=== PATIENT | male | born 1995 | race Caucasian/White ===

== ENCOUNTER 2018-06-02 15:25 | Emergency (ER) | payer SELFPAY ==
[2018-06-02 15:39] VITALS: BP 113/80; PULSE 85; RESP 18; TEMP 98.4
--- NOTE | 2018-06-02 15:48 | ED ---
ENT HPI - General Chief complaint: ENT Stated complaint: Sore Thoat Time Seen by Provider: 06/02/18 15:41 Source: patient, RN notes reviewed Mode of arrival: ambulatory Limitations: no limitations - History of Present Illness Initial comments: 22-year-old male presents emergency Department chief complaint sore throat. Patient states it started said last night worse today. He did try some over-the -counter medications and salt water gargles no relief. Patient states his uvula swollen. Patient denies any known fever or chills. Denies any sinus congestion, cough or chest congestion. Patient states that he's had known drug ALLERGIES no other ALLERGIES noted. - Related Data Previous Rx's Medication Instructions Recorded Amoxicillin 500 mg PO Q8H #30 capsule 06/02/18 predniSONE 50 mg PO DAILY #5 tab 06/02/18 Allergies Allergy/AdvReac Type Severity Reaction Status Date / Time No Known Allergies Allergy Verified 06/02/18 15:39 Review of Systems ROS Statement: Those systems with pertinent positive or pertinent negative responses have been documented in the HPI. ROS Other: All systems not noted in ROS Statement are negative. Past Medical History Past Medical History: No Reported History History of Any Multi-Drug Resistant Organisms: None Reported Past Surgical History: No Surgical Hx Reported Past Psychological History: No Psychological Hx Reported Smoking Status: Never smoker Past Alcohol Use History: Occasional Past Drug Use History: None Reported General Exam Limitations: no limitations General appearance: alert, in no apparent distress Head exam: Present: atraumatic, normocephalic, normal inspection Eye exam: Present: normal appearance, PERRL, EOMI. Absent: scleral icterus, conjunctival injection, periorbital swelling ENT exam: Present: mucous membranes moist, TM's normal bilaterally, normal external ear exam. Absent: normal oropharynx (Uvula is erythematous, swollen patient is swallowing secretions well) Neck exam: Present: normal inspection, full ROM. Absent: tenderness, meningismus, lymphadenopathy Respiratory exam: Present: normal lung sounds bilaterally. Absent: respiratory distress, wheezes, rales, rhonchi, stridor Cardiovascular Exam: Present: regular rate, normal rhythm, normal heart sounds. Absent: systolic murmur, diastolic murmur, rubs, gallop, clicks Course Vital Signs 06/02/18 15:36 Temperature 98.4 F Pulse Rate 85 Respiratory 18 Rate Blood Pressure 113/80 O2 Sat by Pulse 97 Oximetry Medical Decision Making - Medical Decision Making 22-year-old male present emergency from for sore throat. Patient has uvulitis. Patient be started on prednisone, amoxicillin. We did discuss take over-the- counter antihistamines. Return parameters were discussed. Disposition Clinical Impression: Uvulitis Disposition: HOME SELF-CARE Condition: Stable Instructions: Uvulitis (ED) Additional Instructions: Please return to the Emergency Department if symptoms worsen or any other concerns. Prescriptions: Amoxicillin 500 mg PO Q8H #30 capsule predniSONE 50 mg PO DAILY #5 tab Is patient prescribed a controlled substance at d/c from ED?: No Referrals: None,Stated [Primary Care Provider] - 1-2 days Time of Disposition: 15:48
== END 2018-06-02 16:05 | disposition home or self-care (01) ==
LOC: EC 15:25
DX: K12.2 Cellulitis and abscess of mouth (principal)
CPT/HCPCS: 99282

== ENCOUNTER 2021-10-27 19:11 | Emergency (ER) | payer OTHER ==
[2021-10-27 21:15] VITALS: BP 126/70; PULSE 95; RESP 18; TEMP 98.4
--- NOTE | 2021-10-27 22:46 | ED ---
URI HPI - General Chief Complaint: Upper Respiratory Infection Stated Complaint: Dizziness,Nausea Time Seen by Provider: 10/27/21 22:37 Source: patient Mode of arrival: ambulatory Limitations: no limitations - History of Present Illness MD Complaint: fever, cough, nasal congestion Onset/Timin -: days(s) Consistency: constant Improves With: nothing Worsens With: nothing Context: sick contacts Associated Symptoms: fever, chills, myalgias, headache, nasal congestion, cough - Related Data Previous Rx's Medication Instructions Recorded Amoxicillin 500 mg PO Q8H #30 capsule 06/02/18 predniSONE 50 mg PO DAILY #5 tab 06/02/18 Allergies Allergy/AdvReac Type Severity Reaction Status Date / Time strawberry Allergy Rash/Hives Verified 10/27/21 21:15 Review of Systems ROS Statement: Those systems with pertinent positive or pertinent negative responses have been documented in the HPI. ROS Other: All systems not noted in ROS Statement are negative. Constitutional: Reports: fever, chills ENT: Reports: congestion Respiratory: Reports: cough. Denies: dyspnea Cardiovascular: Denies: chest pain, palpitations Gastrointestinal: Denies: abdominal pain, nausea, vomiting Genitourinary: Denies: dysuria Musculoskeletal: Reports: myalgia Skin: Denies: rash Neurological: Reports: headache. Denies: weakness Past Medical History Past Medical History: Asthma History of Any Multi-Drug Resistant Organisms: None Reported Past Surgical History: No Surgical Hx Reported Past Psychological History: ADD/ADHD, Anxiety Smoking Status: Never smoker Past Alcohol Use History: Occasional Past Drug Use History: Marijuana General Exam Limitations: no limitations General appearance: alert, in no apparent distress Head exam: Present: atraumatic, normocephalic Eye exam: Present: normal appearance. Absent: scleral icterus, conjunctival injection Neck exam: Present: normal inspection Respiratory exam: Present: normal lung sounds bilaterally. Absent: respiratory distress, wheezes, rales, rhonchi, stridor Cardiovascular Exam: Present: regular rate, normal rhythm, normal heart sounds. Absent: systolic murmur, diastolic murmur, rubs, gallop GI/Abdominal exam: Present: soft. Absent: distended, tenderness, guarding, rebound, rigid, mass Extremities exam: Present: normal inspection, normal capillary refill. Absent: pedal edema, calf tenderness Back exam: Present: normal inspection. Absent: CVA tenderness (R), CVA tenderness (L) Neurological exam: Present: alert Skin exam: Present: warm, dry, intact, normal color. Absent: rash Course Vital Signs 10/27/21 21:12 Temperature 98.4 F Pulse Rate 95 Respiratory 18 Rate Blood Pressure 126/70 O2 Sat by Pulse 99 Oximetry Medical Decision Making - Lab Data Lab Results 10/27/21 Range/Units 21:23 Influenza Type A (PCR) Not Detected (Not Detectd) Influenza Type B (PCR) Not Detected (Not Detectd) RSV (PCR) Not Detected (Not Detectd) SARS-CoV-2 (PCR) Detected A (Not Detectd) Disposition Clinical Impression: COVID-19 Disposition: HOME SELF-CARE Condition: Good Instructions (If sedation given, give patient instructions): Coronavirus Disease 2019 (COVID-19) Is patient prescribed a controlled substance at d/c from ED?: No Referrals: None,Stated [Primary Care Provider] - 1-2 days
== END 2021-10-27 22:58 | disposition home or self-care (01) ==
LOC: EC 19:11
DX: U07.1 COVID-19 (principal); J45.909 Unspecified asthma, uncomplicated; F12.90 Cannabis use, unspecified, uncomplicated; Z79.52 Long term (current) use of systemic steroids
CPT/HCPCS: 87636; 99283

== ENCOUNTER 2022-10-06 19:59 | Emergency (ER) | payer SELFPAY ==
--- NOTE | 2022-10-06 20:56 | XR ---
EXAMINATION TYPE: XR chest 2V DATE OF EXAM: 10/06/2022 8:46 PM COMPARISON: Chest radiographs from 09/12/2012 TECHNIQUE: XR chest 2V Frontal and lateral views of the chest. CLINICAL INDICATION:Male, 27 years old with history of cough congestion sob; FINDINGS: Lungs/Pleura: There is no evidence of pleural effusion, focal consolidation, or pneumothorax. Pulmonary vascularity: Unremarkable. Heart/mediastinum: Cardiomediastinal silhouette is unremarkable. Musculoskeletal: No acute osseous pathology. IMPRESSION: No acute cardiopulmonary disease/process.
[2022-10-06] MEDS ORDERED: IBUPROFEN 600 MG TAB PO STA (22:19)
[2022-10-06] MEDS ORDERED: ACETAMINOPHEN TAB 500 MG TAB PO STA (22:19)
--- NOTE | 2022-10-06 22:23 | ED ---
URI HPI - General Chief Complaint: Upper Respiratory Infection Stated Complaint: cough,sore throat,sweats Time Seen by Provider: 10/06/22 21:48 Source: patient Mode of arrival: ambulatory Limitations: no limitations - History of Present Illness Initial Comments: Patient is a 27-year-old male presenting with chief complaint of URI like symptoms. Patient states that today he began experiencing cough, congestion, fever, sore throat, sinus pressure, chills. No chest pain or difficulty breathing. No palpitations or weakness. No abdominal pain, nausea, vomiting. No neck pain or stiffness. No dizziness, headache, vision or hearing changes. No dysuria, hematuria, flank pain. - Related Data Previous Rx's Medication Instructions Recorded Amoxicillin 500 mg PO Q8H #30 capsule 06/02/18 predniSONE 50 mg PO DAILY #5 tab 06/02/18 Allergies Allergy/AdvReac Type Severity Reaction Status Date / Time strawberry Allergy Rash/Hives Verified 10/06/22 20:37 Review of Systems ROS Statement: Those systems with pertinent positive or pertinent negative responses have been documented in the HPI. ROS Other: All systems not noted in ROS Statement are negative. Past Medical History Past Medical History: Asthma History of Any Multi-Drug Resistant Organisms: None Reported Past Surgical History: No Surgical Hx Reported Past Psychological History: ADD/ADHD, Anxiety Smoking Status: Never smoker, Vaper Past Alcohol Use History: Occasional Past Drug Use History: Marijuana General Exam Limitations: no limitations General appearance: alert, in no apparent distress Head exam: Present: atraumatic, normocephalic, normal inspection Eye exam: Present: normal appearance, PERRL, EOMI. Absent: scleral icterus, conjunctival injection, periorbital swelling ENT exam: Present: normal exam, mucous membranes moist Neck exam: Present: normal inspection, full ROM Respiratory exam: Present: normal lung sounds bilaterally. Absent: respiratory distress, wheezes, rales, rhonchi, stridor Cardiovascular Exam: Present: regular rate, normal rhythm, normal heart sounds. Absent: systolic murmur, diastolic murmur, rubs, gallop, clicks Neurological exam: Present: alert, oriented X3, CN II-XII intact Psychiatric exam: Present: normal affect, normal mood Skin exam: Present: warm, dry, intact, normal color. Absent: rash Course Vital Signs 10/06/22 10/06/22 10/06/22 20:34 22:00 22:45 Temperature 99 F 99.0 F Pulse Rate 110 H 96 Respiratory 20 20 18 Rate Blood Pressure 139/71 135/86 O2 Sat by Pulse 96 97 Oximetry Medical Decision Making - Medical Decision Making Patient is a 27-year-old male presenting for evaluation of fever, chills, cough, congestion, sore throat. On physical exam lungs are clear to auscultation and normal HEENT exam. Patient tested positive for influenza and Covid. Chest x- ray showed no acute cardiopulmonary process by my interpretation. Patient was educated on these findings a supportive treatment. Educated on [place]. Provided with Motrin and Tylenol here in the ER. Alternate Motrin and Tylenol home. Stay well-hydrated. Follow-up with PCP. Report back to ER with any new or worsening symptoms. Discussed return parameters and answered all questions. Patient conveyed verbal understanding and agreed to the plan. I discussed this case in detail with my attending Dr. Schmidt - Lab Data Lab Results 10/06/22 Range/Units 20:40 Influenza Type A (PCR) Detected A (Not Detectd) Influenza Type B (PCR) Not Detected (Not Detectd) RSV (PCR) Not Detected (Not Detectd) SARS-CoV-2 (PCR) Detected A (Not Detectd) Disposition Clinical Impression: Influenza, COVID Disposition: HOME SELF-CARE Condition: Good Instructions (If sedation given, give patient instructions): Influenza (ED), COVID-19 (Coronavirus Disease 2019) (ED) Additional Instructions: Follow-up with PCP. Report back to ER with any new or worsening symptoms. Take Motrin and Tylenol. Her fever and pain control. Stay well-hydrated and get plenty of rest. Quarantine for 5 days starting from your first day of symptoms. If after 5 days you are fever and symptom free, you may end quarantine and must be wearing a facemask while in public for an additional 5 days Is patient prescribed a controlled substance at d/c from ED?: No Referrals: None,Stated [Primary Care Provider] - 1-2 days Time of Disposition: 22:23
[2022-10-06 22:55] VITALS: BP 135/86; PULSE 96; RESP 18; TEMP 99
== END 2022-10-06 22:45 | disposition home or self-care (01) ==
LOC: EC 19:59
DX: U07.1 COVID-19 (principal); J10.1 Influenza due to other identified influenza virus with other respiratory manifestations; J45.909 Unspecified asthma, uncomplicated; F17.290 Nicotine dependence, other tobacco product, uncomplicated; Z91.018 Allergy to other foods
CPT/HCPCS: 71046; 87636; 99283

== ENCOUNTER 2023-08-24 19:27 | Emergency (ER) | payer OTHER ==
[2023-08-24 19:49] VITALS: BP 145/82; PULSE 78; RESP 18; TEMP 98.7
--- NOTE | 2023-08-24 21:24 | ED ---
General Adult HPI - General Chief complaint: ENT Stated complaint: nose bleed,headache Time Seen by Provider: 08/24/23 20:51 Source: patient Mode of arrival: ambulatory Limitations: no limitations - History of Present Illness Initial comments: 27-year-old male presenting with chief complaint of URI-like symptoms. Patient has been experiencing a cough, congestion, and headache since yesterday. Patient has also had a nosebleed that occurred yesterday and one occurred today. Patient also admits to sore throat. No dysphagia, trismus, shortness of nelsy ath. No fevers or chills. No nausea or vomiting. No abdominal pain. - Related Data Previous Rx's Medication Instructions Recorded Amoxicillin 500 mg PO Q8H #30 capsule 06/02/18 predniSONE 50 mg PO DAILY #5 tab 06/02/18 Allergies Allergy/AdvReac Type Severity Reaction Status Date / Time strawberry Allergy Rash/Hives Verified 08/24/23 19:41 Review of Systems ROS Statement: Those systems with pertinent positive or pertinent negative responses have been documented in the HPI. ROS Other: All systems not noted in ROS Statement are negative. Past Medical History Past Medical History: Asthma History of Any Multi-Drug Resistant Organisms: None Reported Past Surgical History: No Surgical Hx Reported Past Psychological History: ADD/ADHD, Anxiety Smoking Status: Never smoker, Vaper Past Alcohol Use History: Occasional Past Drug Use History: Marijuana General Exam Limitations: no limitations General appearance: alert, in no apparent distress Head exam: Present: atraumatic, normocephalic, normal inspection Eye exam: Present: normal appearance, EOMI ENT exam: Present: normal exam, normal oropharynx, mucous membranes moist, TM's normal bilaterally Neck exam: Present: normal inspection, full ROM Respiratory exam: Present: normal lung sounds bilaterally. Absent: respiratory distress, wheezes, rales, rhonchi, stridor Cardiovascular Exam: Present: regular rate, normal rhythm, normal heart sounds. Absent: systolic murmur, diastolic murmur, rubs, gallop, clicks Neurological exam: Present: alert, oriented X3 Psychiatric exam: Present: normal affect, normal mood Skin exam: Present: warm, dry, intact, normal color. Absent: rash Course Vital Signs 08/24/23 19:41 Temperature 98.7 F Pulse Rate 78 Respiratory 18 Rate Blood Pressure 145/82 O2 Sat by Pulse 98 Oximetry Medical Decision Making - Medical Decision Making Was pt. sent in by a medical professional or institution (MARYLOU Ventura, DIRECTOR TRANSITION, urgent care, hospital, or longterm...) When possible be specific @ -No Did you speak to anyone other than the patient for history (EMS, parent, family, police, friend...)? What history was obtained from this source @ -No Did you review nursing and triage notes (agree or disagree)? Why? @ -I reviewed and agree with nursing and triage notes Were old charts reviewed (outside hosp., previous admission, EMS record, old EKG, old radiological studies, urgent care reports/EKG's, longterm records)? Report findings @ -No old charts were reviewed Differential Diagnosis (chest pain, altered mental status, abdominal pain women, abdominal pain men, vaginal bleeding, weakness, fever, dyspnea, syncope, headache, dizziness, GI bleed, back pain, seizure, CVA, palpatations, mental health, musculoskeletal)? @ -Differential includes URI, group A strep, rhinosinusitis, this is not an all inclusive last EKG interpreted by me (3pts min.). @ -As above X-rays interpreted by me (1pt min.). @ -None done CT interpreted by me (1pt min.). @ -None done U/S interpreted by me (1pt. min.). @ -None done What testing was considered but not performed or refused? (CT, X-rays, U/S, labs)? Why? @ -None What meds were considered but not given or refused? Why? @ -None Did you discuss the management of the patient with other professionals (professionals i.e. MARYLOU Ventura, DIRECTOR TRANSITION, lab, RT, psych nurse, social media campaign manager, vault maker, teacher, fare enforcement officer, case filler)? Give summary @ -No Was smoking cessation discussed for >3mins.? @ -No Was critical care preformed (if so, how long)? @ -No Were there social determinants of health that impacted care today? How? (Homelessness, low income, unemployed, alcoholism, drug addiction, transportation, low edu. Level, literacy, decrease access to med. care, usp, rehab)? @ -No Was there de-escalation of care discussed even if they declined (Discuss DNR or withdrawal of care, Hospice)? DNR status @ -No What co-morbidities impacted this encounter? (DM, HTN, Smoking, COPD, CAD, Cancer, CVA, ARF, Chemo, Hep., AIDS, mental health diagnosis, sleep apnea, morbid obesity)? @ -None Was patient admitted / discharged? Hospital course, mention meds given and route, prescriptions, significant lab abnormalities, going to OR and other pertinent info. @ -27-year-old male presenting with chief complaint of URI-like symptoms. Physical exam is conducted. Patient is negative for influenza, RSV, Covid, group A strep. He is educated on today's findings and supportive management at home. Follow-up with PCP. Report back to ER with any new or worsening symptoms. Discussed return parameters and answered all questions. Patient conveyed marcia bal understanding and agreed to the plan. I discussed this case in detail with my attending Dr. Schmidt Undiagnosed new problem with uncertain prognosis? @ -No Drug Therapy requiring intensive monitoring for toxicity (Heparin, Nitro, Insulin, Cardizem)? @ -No Were any procedures done? @ -No Diagnosis/symptom? @ -URI, rhinosinusitis Acute, or Chronic, or Acute on Chronic? @ -Acute Uncomplicated (without systemic symptoms) or Complicated (systemic symptoms)? @ -Uncomplicated Side effects of treatment? @ -No Exacerbation, Progression, or Severe Exacerbation? @ -No Poses a threat to life or bodily function? How? (Chest pain, [place], [place], pneumonia, PE, COPD, DKA, ARF, appy, cholecystitis, CVA, Diverticulitis, Homicidal, Suicidal, threat to staff... and all critical care pts) @ -No - Lab Data Lab Results 08/24/23 08/24/23 Range/Units 20:48 20:53 Influenza Type A (PCR) Not Detected (Not Detectd) Influenza Type B (PCR) Not Detected (Not Detectd) RSV (PCR) Not Detected (Not Detectd) SARS-CoV-2 (PCR) Not Detected (Not Detectd) Group A Strep (PCR) NOT DETECTED (Not Detectd) Disposition Clinical Impression: Acute viral pharyngitis, Rhinosinusitis Disposition: HOME SELF-CARE Condition: Good Instructions (If sedation given, give patient instructions): Pharyngitis (ED), Rhinosinusitis (ED) Additional Instructions: Follow-up with PCP. Report back to ER with any new or worsening symptoms. Is patient prescribed a controlled substance at d/c from ED?: No Referrals: None,Stated [Primary Care Provider] - 1-2 days Time of Disposition: 21:54
[2023-08-24] MEDS ORDERED: IBUPROFEN 800 MG TAB PO STA (21:55)
[2023-08-24] MEDS ORDERED: ACETAMINOPHEN TAB 500 MG TAB PO STA (21:55)
== END 2023-08-24 22:08 | disposition home or self-care (01) ==
LOC: EC 19:27
DX: J02.9 Acute pharyngitis, unspecified (principal); J32.9 Chronic sinusitis, unspecified; J45.909 Unspecified asthma, uncomplicated; F12.90 Cannabis use, unspecified, uncomplicated; F17.290 Nicotine dependence, other tobacco product, uncomplicated; Z86.59 Personal history of other mental and behavioral disorders; Z91.018 Allergy to other foods; Z20.822 Contact with and (suspected) exposure to COVID-19
CPT/HCPCS: 87636; 87651; 99283; 99284